=== PATIENT | male | born 1970 | race African-American/Black ===

== ENCOUNTER 2016-09-19 01:52 | Emergency (ER) | payer OTHER ==
[~2016-09-19] VITALS: Ht 177.8 cm; Wt 90.7 kg
[2016-09-19] MEDS ORDERED: Nitroglycerin Subl 0.4mg tab (Bottle Of 25) SL PRN (02:00)
[2016-09-19] MEDS ORDERED: Aspirin Baby 81mg ORAL ONE (02:00)
[2016-09-19] MEDS ORDERED: Albuterol ud Inhalation HHN ONE (02:00)
[2016-09-19 02:26] LABS: MEAN CORPUSCULAR HEMOGLOBIN 18.4 PG (27.0-31.0); MEAN CORPUSCULAR HGB CONC 29.5 G/DL (32.0-36.0); MEAN CORPUSCULAR VOLUME 63 FL (80-99); MEAN PLATELET VOLUME 7.9 FL (6.5-10.1); PLATELET COUNT 366 K/UL (150-450); RED BLOOD COUNT 7.35 M/UL (4.70-6.10); RED CELL DISTRIBUTION WIDTH 19.2 % (11.6-14.8); WHITE BLOOD COUNT 19.1 K/UL (4.8-10.8)
[2016-09-19 02:27] LABS: APPEARANCE,URINE CLEAR; KETONES,URINE NEGATIVE (NEGATIVE); NITRITE,URINE NEGATIVE (NEGATIVE); PH,URINE 6 (4.5-8.0); PROTEIN,URINE 4+ (NEGATIVE); UROBILINOGEN,URINE NORMAL MG/DL (0.0-1.0)
[2016-09-19 02:39] VITALS: BP 162/98
--- NOTE | 2016-09-19 02:41 | Emergency Room Report ---
History of Present Illness General Chief Complaint: Dyspnea/Respdistress Source: Patient, EMS Present Illness HPI Is a 46-year-old male with history hypertension and CHF. He is noncompliant with his medication. He does have a Dr. He said he hasn't taken his medicine for 2-3 days. He presents with acute onset is short of breath. Onset tonight. Unable to breathe. He called 911 and was in severe rest or distress. He was started up. EMS gave him nitroglycerin. He is unable to tolerate the BiPAP. Patient denies any drug use. Denies any alcohol recently. He has been admitted for the same before but never this bad. Allergies: Coded Allergies: No Known Allergies (Unverified , 09/19/16) Patient History Past Medical History: see triage record, old chart reviewed, HTN, CHF Past Surgical History: other Pertinent Family History: none Social History: Reports: alcohol use, smoking, Denies: drug use Immunizations: other Reviewed Nursing Documentation: PMH: Agreed, PSxH: Agreed Review of Systems Eye: Denies: blurred vision, eye pain ENT: Denies: ear pain, nose congestion, throat swelling Respiratory: Reports: shortness of breath Cardiovascular: Denies: chest pain, palpitations Gastrointestinal: Denies: abdominal pain, diarrhea, nausea, vomiting Musculoskeletal: Denies: back pain, joint pain Skin: Denies: rash Neurological: Denies: headache, numbness Endocrine: Denies: increased thirst, increased urine Hematologic/Lymphatic: Denies: easy bruising All Other Systems: negative except mentioned in HPI Physical Exam Vital Signs Date Time Temp Pulse Resp B/P Pulse Ox O2 Delivery O2 Flow Rate FiO2 09/19/16 01:44 120 32 182/122 97 Non-Rebreather 15.0 09/19/16 02:00 50 vitals with tachycardia, hypertension and hypoxia Sp02 EP Interpretation: abnormal General Appearance: severe distress Head: normocephalic, atraumatic Eyes: bilateral eye EOMI, bilateral eye PERRL ENT: hearing grossly normal, normal pharynx, other - Frothy pinkish sputum Neck: full range of motion, supple, no meningismus Respiratory: chest non-tender, respiratory distress, decreased breath sounds, accessory muscle use, rales Cardiovascular #1: regular rate, rhythm, no murmur, tachycardia Gastrointestinal: normal bowel sounds, non tender, no mass, no organomegaly, no bruit, non-distended Musculoskeletal: back normal, normal range of motion Neurologic: alert, oriented x3 Psychiatric: mood/affect normal Skin: warm/dry Procedures Critical Care Time Critical Care Time Critical care is mandated in this patient who presented with severe respiratory distress secondary to pulmonary edema. Patient require my urgent intervention to attenuate the risks of respiratory failure which may lead to cardiovascular collapse and . Critical care time is 35 minutes excluding any reportable procedure. Critical care time included evaluation, multiple reevaluation, looking at old charts, interpreting laboratory and diagnostic data, discussing case with patient and family and consultants, and charting. Medical Decision Making Diagnostic Impression: Primary Impression: Acute respiratory failure with hypoxia Additional Impressions: Pulmonary edema with congestive heart failure COPD with exacerbation Leukocytosis, unspecified Hypertensive emergency UTI (urinary tract infection) Qualified Codes: N30.00 - Acute cystitis without hematuria Proteinuria Qualified Codes: R80.9 - Proteinuria, unspecified ER Course Patient presents with severe respiratory distress and respiratory failure requiring BiPAP. This is secondary to pulmonary edema from CHF. Is probably secondary to noncompliance possible drug use. He diuresed well putting out over 2 and half liters. He received Lasix here, albuterol, nitroglycerin, and BiPAP. He was able to be weaned off the BiPAP to nasal cannula. At this point in time, he is stable for transfer. I discussed this with [facility] who accepted him for transfer. Patient is agreeable with the plan also. Laboratory Tests Test 09/19/16 02:00 09/19/16 02:05 White Blood Count 19.1 K/UL (4.8-10.8) H Red Blood Count 7.35 M/UL (4.70-6.10) H Hemoglobin 13.5 G/DL (14.2-18.0) L Hematocrit 45.9 % (42.0-52.0) Mean Corpuscular Volume 63 FL (80-99) L Mean Corpuscular Hemoglobin 18.4 PG (27.0-31.0) L Mean Corpuscular Hemoglobin Concent 29.5 G/DL (32.0-36.0) L Red Cell Distribution Width 19.2 % (11.6-14.8) H Platelet Count 366 K/UL (150-450) Mean Platelet Volume 7.9 FL (6.5-10.1) Neutrophils (%) (Auto) % (45.0-75.0) Lymphocytes (%) (Auto) % (20.0-45.0) Monocytes (%) (Auto) % (1.0-10.0) Eosinophils (%) (Auto) % (0.0-3.0) Basophils (%) (Auto) % (0.0-2.0) Differential Total Cells Counted 100 Neutrophils % (Manual) 35 % (45-75) L Lymphocytes % (Manual) 54 % (20-45) H Monocytes % (Manual) 6 % (1-10) Eosinophils % (Manual) 2 % (0-3) Basophils % (Manual) 2 % (0-2) Band Neutrophils 1 % (0-8) Platelet Estimate Adequate Platelet Morphology Normal Red Blood Cell Morphology Normal Sodium Level 147 mEQ/L (135-145) H Potassium Level 4.0 mEQ/L (3.4-4.9) Chloride Level 103 mEQ/L (98-107) Carbon Dioxide Level 24 mEQ/L (20-30) Anion Gap 20 (5-15) H Blood Urea Nitrogen 15 mg/dL (7-23) Creatinine 1.2 mg/dL (0.7-1.2) Estimat Glomerular Filtration Rate > 60 mL/min (>60) Glucose Level 259 mg/dL (74-106) H Calcium Level 9.2 mg/dL (8.6-10.2) Total Bilirubin 0.2 mg/dL (0.0-1.2) Aspartate Amino Transf (AST/SGOT) 72 U/L (5-40) H Alanine Aminotransferase (ALT/SGPT) 41 U/L (3-41) Alkaline Phosphatase 121 U/L (40-129) Total Creatine Kinase 205 U/L (38-174) H Creatine Kinase MB 2.4 ng/mL (< 6.7) Creatine Kinase MB Relative Index 1.1 Troponin I < 0.30 ng/mL (<=0.30) Pro-B-Type Natriuretic Peptide 691 pg/mL (0-125) H Total Protein 7.7 g/dL (6.6-8.7) Albumin 3.8 g/dL (3.5-5.2) Globulin 3.9 g/dL Albumin/Globulin Ratio 0.9 (1.0-2.7) L Urine Color Pale yellow Urine Appearance Clear Urine pH 6 (4.5-8.0) Urine Specific [place] 1.015 (1.005-1.035) Urine Protein 4+ (NEGATIVE) H Urine Glucose (UA) 1+ (NEGATIVE) H Urine Ketones Negative (NEGATIVE) Urine Occult Blood 2+ (NEGATIVE) H Urine Nitrite Negative (NEGATIVE) Urine Bilirubin Negative (NEGATIVE) Urine Urobilinogen Normal MG/DL (0.0-1.0) Urine Leukocyte Esterase 3+ (NEGATIVE) H Urine RBC 5-10 /HPF (0 - 0) H Urine WBC Tntc /HPF (0 - 0) H Urine Squamous Epithelial Cells Few /LPF (NONE/OCC) Urine Bacteria Few /HPF (NONE) Urine Opiates Screen Negative (NEGATIVE) Urine Barbiturates Screen Negative (NEGATIVE) Phencyclidine (PCP) Screen Negative (NEGATIVE) Urine Amphetamines Screen Negative (NEGATIVE) Urine Benzodiazepines Screen Negative (NEGATIVE) Urine Cocaine Screen Negative (NEGATIVE) Urine Marijuana (THC) Screen Positive (NEGATIVE) H Lab Results Impression labs with leukocytosis EKG Diagnostic Results Rate: normal, tachycardiac Rhythm: NSR ST Segments: no acute changes Rhythm Strip Diag. Results EP Interpretation: yes Rate: 100 Rhythm: NSR, no PVC's, no ectopy Chest X-Ray Diagnostic Results EP Interpretation: Yes Findings: no consolidation, no pneumothorax, other - cm with chf, mostly right lungs Number of Views: 1 Last Vital Signs Date Time Temp Pulse Resp B/P Pulse Ox O2 Delivery O2 Flow Rate FiO2 09/19/16 02:28 106 38 100 Bi-pap 50 09/19/16 02:05 15.0 09/19/16 02:04 182/122 Status: improved Disposition: XFER [facility] Condition: Stable WANG JACOBS M.D. September 19, 2016 02:41
[2016-09-19 02:47] LABS: ALANINE AMINOTRANSFERASE 41 U/L (3-41); ALBUMIN/GLOBULIN RATIO 0.9 (1.0-2.7); ANION GAP 20 (5-15); ASPARTATE AMINO TRANSFERASE 72 U/L (5-40); CALCIUM 9.2 mg/dL (8.6-10.2); CARBON DIOXIDE 24 mEQ/L (20-30); CHLORIDE 103 mEQ/L (98-107); CREATININE 1.2 mg/dL (0.7-1.2); GLOMERULAR FILTRATION RATE > 60 mL/min (>60); HEMOLYSIS 2; SODIUM 147 mEQ/L (135-145); TOTAL PROTEIN 7.7 g/dL (6.6-8.7)
[2016-09-19 02:51] LABS: BACTERIA,URINE FEW /HPF; LEUKOCYTE ESTERASE ,URINE 3+ (NEGATIVE); SQUAMOUS EPITHELIAL CELL,UR FEW /LPF (NONE/OCC); WBC,URINE TNTC /HPF (0 - 0)
[2016-09-19 03:05] LABS: TROPONIN I < 0.30 ng/mL (<=0.30)
[2016-09-19 03:14] LABS: BAND NEUTROPHILS % (MANUAL) 1 % (0-8); BASOPHILS % (MANUAL) 2 % (0-2); EOSINOPHILS % (MANUAL) 2 % (0-3); LYMPHOCYTES % (MANUAL) 54 % (20-45); NEUTROPHILS % (MANUAL) 35 % (45-75); PLATELET ESTIMATE ADEQUATE; TOTAL CELLS COUNTED 100
[2016-09-19 03:15] LABS: PLATELET MORPHOLOGY NORMAL
[2016-09-19 03:16] LABS: WBC,URINE TNTC /HPF (0 - 0)
[2016-09-19 03:17] LABS: BACTERIA,URINE FEW /HPF; SQUAMOUS EPITHELIAL CELL,UR FEW /LPF (NONE/OCC)
[2016-09-19 03:19] LABS: CKMB 2.4 ng/mL (< 6.7)
[2016-09-19 04:31] VITALS: BP 120/82
[2016-09-19] MEDS ORDERED: cefTRIAXone 1 GM in NS 55 ML IVPB ONE (05:00)
[2016-09-19] MEDS ORDERED: Solu-MEDROL 125mg Inj IVP ONE (05:00)
[2016-09-19 05:39] VITALS: BP 127/84
[2016-09-19 06:10] VITALS: BP 127/84
--- NOTE | 2016-09-19 10:46 | Diagnostic Imaging Report ---
Indication: Dyspnea Comparison: None A single view chest radiograph was obtained. Findings: There is enlargement of the cardiac silhouette with pulmonary vascular redistribution and prominence, hazy vessel margins and the suggestion of interstitial edema consistent with CHF. Bones are unremarkable. Impression: Interstitial edema/CHF
== END 2016-09-19 06:10 | disposition short-term general hospital (02) ==
LOC: EDBD 01:52 → EMR 02:20 → EDBEDREQ 04:19 → EMR 06:10
DX: J96.01 Acute respiratory failure with hypoxia (principal); I50.1 Left ventricular failure, unspecified; J44.1 Chronic obstructive pulmonary disease with (acute) exacerbation; D72.829 Elevated white blood cell count, unspecified; I16.0 Hypertensive urgency; N39.0 Urinary tract infection, site not specified; R06.00 Dyspnea, unspecified; R00.0 Tachycardia, unspecified; Z72.0 Tobacco use; F10.20 Alcohol dependence, uncomplicated; R06.02 Shortness of breath; Z91.14 Patient's other noncompliance with medication regimen
CPT/HCPCS: 36415; 71010; 80053; 80300; 81003; 82550; 82553; 83880; 84484; 85007; 85025; 87086; 93005; 94640; 94760; 99291; J0696; J1940; J2405; J2930

== ENCOUNTER 2016-10-22 01:47 | Emergency (ER) | payer OTHER ==
[~2016-10-22] VITALS: Ht 177.8 cm; Wt 99.8 kg
[2016-10-22 01:55] VITALS: BP 186/123
--- NOTE | 2016-10-22 01:55 | Emergency Room Report ---
History of Present Illness General Chief Complaint: Dyspnea/Respdistress Source: Patient, Medical Record, EMS Present Illness HPI Is a 46-year-old male with a history hypertension and CHF. He has a history of cardiomyopathy with a poor ejection fraction. He has not taken his medication the last few days because he ran out. Did not followup. He presents with chief complaint of severe rest or distress. Onset for last few days but worse tonight. Per EMS he was in severe respiratory distress with observation in the low 80s. They try to put him on CPAP but he refused because of agitation. Also unable to get an IV on him. Worse with exertion. Worse with lying flat. Similar symptom in the past. I saw him about a month ago for exact same thing. Allergies: Coded Allergies: No Known Allergies (Unverified , 09/19/16) Patient History Past Medical History: see triage record, old chart reviewed, HTN, CHF Past Surgical History: other Pertinent Family History: none Social History: Reports: smoking Immunizations: other Reviewed Nursing Documentation: PMH: Agreed, PSxH: Agreed Nursing Documentation-PMH Hx Cardiac Problems: Yes - CHF Review of Systems Eye: Denies: blurred vision, eye pain ENT: Denies: ear pain, nose congestion, throat swelling Respiratory: Reports: cough, shortness of breath Cardiovascular: Denies: chest pain, palpitations Gastrointestinal: Denies: abdominal pain, diarrhea, nausea, vomiting Musculoskeletal: Denies: back pain, joint pain Skin: Denies: rash Neurological: Denies: headache, numbness Endocrine: Denies: increased thirst, increased urine Hematologic/Lymphatic: Denies: easy bruising All Other Systems: negative except mentioned in HPI Physical Exam vitals with hypotension and hypoxia Sp02 EP Interpretation: abnormal General Appearance: severe distress Head: normocephalic, atraumatic Eyes: bilateral eye EOMI, bilateral eye PERRL ENT: hearing grossly normal, normal pharynx Neck: full range of motion, supple, no meningismus Respiratory: chest non-tender, respiratory distress, decreased breath sounds, rales Cardiovascular #1: regular rate, rhythm, no murmur, tachycardia Gastrointestinal: normal bowel sounds, non tender, no mass, no organomegaly, no bruit, non-distended Musculoskeletal: back normal, normal range of motion, swelling - One plus edema Neurologic: alert, oriented x3 Psychiatric: anxious - And agitated Skin: warm/dry Procedures Critical Care Time Critical Care Time Critical care is mandated in this patient who presented with severe rest or distress secondary to palm edema and CHF. Patient require my urgent intervention to attenuate the risks of respiratory collapse which may lead to cardiovascular collapse and . Critical care time is 35 minutes excluding any reportable procedure. Critical care time included evaluation, multiple reevaluation, looking at old charts, interpreting laboratory and diagnostic data , discussing case with patient and family and consultants, and charting. Medical Decision Making Diagnostic Impression: Primary Impression: Respiratory distress Additional Impressions: Acute respiratory failure with hypoxia Pulmonary edema cardiac cause CHF exacerbation Qualified Codes: I50.9 - Heart failure, unspecified Noncompliance Hyperglycemia due to type 2 diabetes mellitus Qualified Codes: E11.65 - Type 2 diabetes mellitus with hyperglycemia Hypertensive emergency Leukocytosis Qualified Codes: D72.829 - Elevated white blood cell count, unspecified ER Course Patient present with severe rest or distress and pulmonary edema. He was placed on BiPAP initially. Now weaning down. He is feeling much better now. He received nitroglycerin, Lasix, JOSE DE JESUS inhibitor. He diuresed over a liter. [place] better now. Blood pressure improved. According to his [facility] paperwork, he has ejection fraction of 31-40%. I discussed the case with [facility] who will accept the patient for transfer. he has a nonspecific leukocytosis. differentials normal. this may be secondary to stress response secondary to respiratory distress. I see no evidence of infection. Laboratory Tests Test 10/22/16 01:50 10/22/16 03:00 White Blood Count 24.4 K/UL (4.8-10.8) *H 20.4 K/UL (4.8-10.8) H Red Blood Count 7.15 M/UL (4.70-6.10) H 6.96 M/UL (4.70-6.10) H Hemoglobin 13.5 G/DL (14.2-18.0) L 13.0 G/DL (14.2-18.0) L Hematocrit 46.2 % (42.0-52.0) 44.5 % (42.0-52.0) Mean Corpuscular Volume 65 FL (80-99) L 64 FL (80-99) L Mean Corpuscular Hemoglobin 18.9 PG (27.0-31.0) L 18.7 PG (27.0-31.0) L Mean Corpuscular Hemoglobin Concent 29.2 G/DL (32.0-36.0) L 29.2 G/DL (32.0-36.0) L Red Cell Distribution Width 19.1 % (11.6-14.8) H 18.8 % (11.6-14.8) H Platelet Count 338 K/UL (150-450) 320 K/UL (150-450) Mean Platelet Volume 8.2 FL (6.5-10.1) 7.7 FL (6.5-10.1) Neutrophils (%) (Auto) % (45.0-75.0) % (45.0-75.0) Lymphocytes (%) (Auto) % (20.0-45.0) % (20.0-45.0) Monocytes (%) (Auto) % (1.0-10.0) % (1.0-10.0) Eosinophils (%) (Auto) % (0.0-3.0) % (0.0-3.0) Basophils (%) (Auto) % (0.0-2.0) % (0.0-2.0) Differential Total Cells Counted 100 Neutrophils % (Manual) 49 % (45-75) Lymphocytes % (Manual) 40 % (20-45) Monocytes % (Manual) 5 % (1-10) Eosinophils % (Manual) 2 % (0-3) Basophils % (Manual) 2 % (0-2) Band Neutrophils 2 % (0-8) Platelet Estimate Adequate Platelet Morphology Normal Red Blood Cell Morphology Normal Prothrombin Time 10.4 SEC (9.30-11.50) Prothromb Time International Ratio 1.0 (0.9-1.1) Activated Partial Thromboplast Time 28 SEC (23-33) Urine Color Pale yellow Urine Appearance Clear Urine pH 6 (4.5-8.0) Urine Specific [place] 1.015 (1.005-1.035) Urine Protein 4+ (NEGATIVE) H Urine Glucose (UA) Negative (NEGATIVE) Urine Ketones Negative (NEGATIVE) Urine Occult Blood 1+ (NEGATIVE) H Urine Nitrite Negative (NEGATIVE) Urine Bilirubin Negative (NEGATIVE) Urine Urobilinogen Normal MG/DL (0.0-1.0) Urine Leukocyte Esterase Negative (NEGATIVE) Urine RBC 0-2 /HPF (0 - 0) H Urine WBC 0-2 /HPF (0 - 0) Urine Squamous Epithelial Cells Few /LPF (NONE/OCC) Urine Bacteria Few /HPF (NONE) Sodium Level 143 mEQ/L (135-145) Potassium Level 3.3 mEQ/L (3.4-4.9) L Chloride Level 98 mEQ/L (98-107) Carbon Dioxide Level 22 mEQ/L (20-30) Anion Gap 23 (5-15) H Blood Urea Nitrogen 17 mg/dL (7-23) Creatinine 1.3 mg/dL (0.7-1.2) H Estimat Glomerular Filtration Rate > 60 mL/min (>60) Glucose Level 263 mg/dL (74-106) H Calcium Level 9.0 mg/dL (8.6-10.2) Total Bilirubin 0.3 mg/dL (0.0-1.2) Aspartate Amino Transf (AST/SGOT) 64 U/L (5-40) H Alanine Aminotransferase (ALT/SGPT) 35 U/L (3-41) Alkaline Phosphatase 138 U/L (40-129) H Total Creatine Kinase 216 U/L (38-174) H Creatine Kinase MB 2.6 ng/mL (< 6.7) Creatine Kinase MB Relative Index 1.2 Troponin I < 0.30 ng/mL (<=0.30) Pro-B-Type Natriuretic Peptide 650 pg/mL (0-125) H Total Protein 7.8 g/dL (6.6-8.7) Albumin 4.1 g/dL (3.5-5.2) Globulin 3.7 g/dL Albumin/Globulin Ratio 1.1 (1.0-2.7) Urine Opiates Screen Negative (NEGATIVE) Urine Barbiturates Screen Negative (NEGATIVE) Phencyclidine (PCP) Screen Negative (NEGATIVE) Urine Amphetamines Screen Negative (NEGATIVE) Urine Benzodiazepines Screen Negative (NEGATIVE) Urine Cocaine Screen Negative (NEGATIVE) Urine Marijuana (THC) Screen Positive (NEGATIVE) H Lab Results Impression labs with leukocytosis EKG Diagnostic Results EKG Time: 03:48 Rate: tachycardiac Rhythm: NSR ST Segments: other - No specific ST changes Rhythm Strip Diag. Results Rhythm Strip Time: 03:49 EP Interpretation: yes Rate: 78 Rhythm: NSR, no PVC's, no ectopy Chest X-Ray Diagnostic Results Chest X-Ray Ordered: Yes # of Views/Limited/Complete: 1 View EP Interpretation: Yes Interpretation: no consolidation, no effusion, no pneumothorax, other - Cardiomegaly with vascular congestion Indication: Shortness of Breath Impression: Other - cm with chf Interpreting ER Provider: Lester Martinez MD Status: improved Disposition: ADMITTED INPATIENT Condition: Stable LESTER MARTINEZ M.D. Oct 22, 2016 01:55
[2016-10-22] MEDS ORDERED: Albuterol ud Inhalation HHN ONE (02:00)
[2016-10-22] MEDS ORDERED: Ipratropium 0.02% Inh Soln 2.5ml UD HHN ONE (02:00)
[2016-10-22] MEDS ORDERED: Nitroglycerin Subl 0.4mg tab (Bottle Of 25) SL PRN (02:00)
[2016-10-22 02:04] LABS: MEAN CORPUSCULAR HEMOGLOBIN 18.9 PG (27.0-31.0); MEAN CORPUSCULAR HGB CONC 29.2 G/DL (32.0-36.0); MEAN CORPUSCULAR VOLUME 65 FL (80-99); MEAN PLATELET VOLUME 8.2 FL (6.5-10.1); PLATELET COUNT 338 K/UL (150-450); RED BLOOD COUNT 7.15 M/UL (4.70-6.10); RED CELL DISTRIBUTION WIDTH 19.1 % (11.6-14.8)
[2016-10-22 02:09] LABS: WHITE BLOOD COUNT 24.4 K/UL (4.8-10.8)
[2016-10-22 02:19] LABS: PROTHROMBIN TIME 10.4 SEC (9.30-11.50)
[2016-10-22 02:23] LABS: ALANINE AMINOTRANSFERASE 35 U/L (3-41); ALBUMIN/GLOBULIN RATIO 1.1 (1.0-2.7); ANION GAP 23 (5-15); ASPARTATE AMINO TRANSFERASE 64 U/L (5-40); CARBON DIOXIDE 22 mEQ/L (20-30); CHLORIDE 98 mEQ/L (98-107); CREATININE 1.3 mg/dL (0.7-1.2); GLOMERULAR FILTRATION RATE > 60 mL/min (>60); HEMOLYSIS 8; POTASSIUM 3.3 mEQ/L (3.4-4.9); SODIUM 143 mEQ/L (135-145); TOTAL PROTEIN 7.8 g/dL (6.6-8.7)
[2016-10-22 02:24] LABS: TROPONIN I < 0.30 ng/mL (<=0.30)
[2016-10-22 02:34] LABS: CKMB 2.6 ng/mL (< 6.7)
[2016-10-22 02:37] LABS: APPEARANCE,URINE CLEAR; KETONES,URINE NEGATIVE (NEGATIVE); LEUKOCYTE ESTERASE ,URINE NEGATIVE (NEGATIVE); NITRITE,URINE NEGATIVE (NEGATIVE); PH,URINE 6 (4.5-8.0); PROTEIN,URINE 4+ (NEGATIVE); UROBILINOGEN,URINE NORMAL MG/DL (0.0-1.0)
[2016-10-22 02:44] LABS: BACTERIA,URINE FEW /HPF; RBC,URINE 0-2 /HPF (0 - 0); SQUAMOUS EPITHELIAL CELL,UR FEW /LPF (NONE/OCC); WBC,URINE 0-2 /HPF (0 - 0)
[2016-10-22] MEDS ORDERED: Enalaprilat 2.5mg/2ml Inj IV ONE (02:45)
[2016-10-22 03:10] LABS: MEAN CORPUSCULAR HEMOGLOBIN 18.7 PG (27.0-31.0); MEAN CORPUSCULAR HGB CONC 29.2 G/DL (32.0-36.0); MEAN CORPUSCULAR VOLUME 64 FL (80-99); MEAN PLATELET VOLUME 7.7 FL (6.5-10.1); PLATELET COUNT 320 K/UL (150-450); RED BLOOD COUNT 6.96 M/UL (4.70-6.10); RED CELL DISTRIBUTION WIDTH 18.8 % (11.6-14.8); WHITE BLOOD COUNT 20.4 K/UL (4.8-10.8)
[2016-10-22 03:14] LABS: BAND NEUTROPHILS % (MANUAL) 2 % (0-8); BASOPHILS % (MANUAL) 2 % (0-2); EOSINOPHILS % (MANUAL) 2 % (0-3); LYMPHOCYTES % (MANUAL) 40 % (20-45); NEUTROPHILS % (MANUAL) 49 % (45-75); PLATELET ESTIMATE ADEQUATE; PLATELET MORPHOLOGY NORMAL; TOTAL CELLS COUNTED 100
[2016-10-22 03:55] VITALS: BP 135/89
[2016-10-22 05:55] VITALS: BP 127/78
[2016-10-22 07:08] VITALS: BP 141/69
--- NOTE | 2016-10-22 10:32 | Diagnostic Imaging Report ---
Indication: SOB Technique: One view of the chest Comparison: 09/19/2016 Findings: The heart is enlarged. There is bilateral interstitial and alveolar edema, appearing similar in extent to the previous study. There left costophrenic angle blunting. Impression: Bilateral interstitial and alveolar edema, similar to previous exam of 09/19/2016, presumably recurrent Suspect small left pleural effusion Cardiomegaly This agrees with the preliminary interpretation provided by the emergency room physician
== END 2016-10-22 07:08 | disposition short-term general hospital (02) ==
LOC: EDBD 01:47 → EMR 02:25
DX: J96.01 Acute respiratory failure with hypoxia (principal); I11.0 Hypertensive heart disease with heart failure; I50.9 Heart failure, unspecified; I50.1 Left ventricular failure, unspecified; F17.200 Nicotine dependence, unspecified, uncomplicated; E11.65 Type 2 diabetes mellitus with hyperglycemia; D72.829 Elevated white blood cell count, unspecified; Z91.19 Patient's noncompliance with other medical treatment and regimen
CPT/HCPCS: 36415; 71010; 80053; 80300; 81003; 82550; 82553; 83880; 84484; 85007; 85025; 85610; 85730; 93005; 94640; 94664; 96374; 96375; 99291; J1940